=== PATIENT | male | born 1995 | race Native Hawaiian/Other Pacific Islander ===

== ENCOUNTER 2016-04-10 17:31 | Emergency (ER) | payer OTHER ==
[~2016-04-10] VITALS: Ht 180.3 cm; Wt 70.0 kg
[2016-04-10 17:40] VITALS: BP 113/58; PULSE 76; RESP 18; TEMP 97.6; O2SAT 98
[2016-04-10 18:34] LABS: BASOPHIL % 0.2 % (0.0-2.0); EOSINOPHIL % 0.6 % (0.0-4.0); HEMATOCRIT 41.9 % (39.0-51.0); HEMO FLAGS DIFF FINAL; LYMPH % 20.2 % (9.0-44.0); LYMPHOCYTE # 1.7 TH/MM3 (1.0-4.8); MEAN CELL VOLUME 95.3 FL (80.0-100.0); MEAN CORPUSCULAR HEMOGLOBIN 32.3 PG (27.0-34.0); MEAN CORPUSCULAR HGB CONC 33.9 % (32.0-36.0); MONO % 6.3 % (0.0-8.0); NEUT % 72.7 % (16.0-70.0); PLATELET COUNT 241 TH/MM3 (150-450); RED BLOOD COUNT 4.39 MIL/MM3 (4.50-5.90); RED CELL DISTRIBUTION WIDTH 13.1 % (11.6-17.2); WHITE BLOOD COUNT 8.2 TH/MM3 (4.0-11.0)
--- NOTE | 2016-04-10 18:41 | RADRPT ---
EXAM DATE/TIME: 04/10/2016 18:31 [facility] COMPARISON: No previous studies available for comparison. INDICATIONS : Possible seizure, fall with trauma to head and face. RADIATION DOSE: 38.23 CTDIvol (mGy) MEDICAL HISTORY : None SURGICAL HISTORY : None. ENCOUNTER: Initial ACUITY: 1 day PAIN SCALE: 5/10 LOCATION: cranial TECHNIQUE: Multiple contiguous axial images were obtained of the head. Using automated exposure control and adj ustment of the mA and/or kV according to patient size, radiation dose was kept as low as reasonably a chievable to obtain optimal diagnostic quality images. FINDINGS: CEREBRUM: The ventricles are normal for age. No evidence of midline shift, mass lesion, hemorrhage or acute in farction. No extra-axial fluid collections are seen. POSTERIOR FOSSA: The cerebellum and brainstem are intact. The 4th ventricle is midline. The cerebellopontine angle i s unremarkable. EXTRACRANIAL: The visualized portion of the orbits is intact. SKULL: The calvaria is intact. No evidence of skull fracture. CONCLUSION: Normal examination. Crow Barrios MD on April 10, 2016 at 18:39 Board Certified Radiologist. This report was verified electronically.
--- NOTE | 2016-04-10 18:46 | RADRPT ---
EXAM DATE/TIME: 04/10/2016 18:31 [facility] COMPARISON: CT BRAIN W/O CONTRAST, April 10, 2016, 18:31. INDICATIONS : Fall with trauma to face. RADIATION DOSE: 58.52 CTDIvol (mGy) MEDICAL HISTORY : Seizures. SURGICAL HISTORY : None. ENCOUNTER: Subsequent ACUITY: 1 day PAIN SCORE: 6/10 LOCATION: facial TECHNIQUE: Volumetric scanning of the facial bones was performed. Using automated exposure control and adjustme nt of the mA and/or kV according to patient size, radiation dose was kept as low as reasonably achiev able to obtain optimal diagnostic quality images. FINDINGS: ORBITS: The orbital and infraorbital osseous structures are intact. The retroconal structures have a normal configuration. No radiopaque foreign bodies are seen. NASAL BONE: The nasal bone and maxillary spine are intact ZYGOMATIC ARCHES: Symmetric without evidence of fracture. SINUSES: The maxillary, ethmoid and frontal sinuses are intact. No air-fluid levels seen. NASAL CAVITY: The nasal septum is intact and midline. The lacrimal ducts are intact. SOFT TISSUES: No radiopaque foreign bodies seen. No soft-tissue swelling is seen. Superficial soft tissue abrasion or laceration at the chin anteriorly INTRACRANIAL: No intracranial air seen. CRIBIFORM PLATE: Grossly intact. CONCLUSION: Superficial soft tissue laceration abrasion anterior chin. Otherwise negative no acute bony injury. Crow Barrios MD on April 10, 2016 at 18:42 Board Certified Radiologist. This report was verified electronically.
[2016-04-10 18:47] LABS: ANION GAP 15 MEQ/L (5-15); BICARBONATE 20.6 MEQ/L (21.0-32.0); BLOOD UREA NITROGEN 13 MG/DL (7-18); CHLORIDE 105 MEQ/L (98-107); GLOMERULAR FILTRATION RATE 67 ML/MIN (>89); MAGNESIUM 2.2 MG/DL (1.5-2.5); POTASSIUM 3.9 MEQ/L (3.5-5.1); SODIUM (NA) 141 MEQ/L (136-145)
[2016-04-10 18:51] LABS: ALKALINE PHOSPHATASE 59 U/L (45-117); ALT (GPT) 34 U/L (12-78); AST (GOT) 19 U/L (15-37); TOTAL BILIRUBIN ADULT 0.5 MG/DL (0.2-1.0)
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
[2016-04-10] MEDS ORDERED: NAPR500T PO (18:58)
[2016-04-10] MEDS ORDERED: LIDOCAINE HCL 1% 50 ML VIAL INFIL ONE (19:15)
--- NOTE | 2016-04-10 19:56 | PD ---
Physical Exam Narrative I was asked by Dr. Mahmood to suture laceration on patient's chin Data Data Last Documented VS Vital Signs Date Time Temp Pulse Resp B/P Pulse Ox O2 Delivery O2 Flow Rate FiO2 04/10/16 17:47 98 18 99 Room Air 04/10/16 17:40 97.6 113/58 Orders Complete Blood Count With Diff (04/10/16 17:43) Comprehensive Metabolic Panel (04/10/16 17:43) ^ Insert Iv (04/10/16 17:43) Ct Brain W/O Iv Contrast(Rout) (04/10/16 ) Ct Facial Bones W/O Iv Cont (04/10/16 ) Magnesium (Mg) (04/10/16 17:43) Lidocaine 1% Inj (50 Ml) (Xylocaine 1% I (04/10/16 19:15) Labs Laboratory Tests Test 04/10/16 18:15 White Blood Count 8.2 TH/MM3 Red Blood Count 4.39 MIL/MM3 Hemoglobin 14.2 GM/DL Hematocrit 41.9 % Mean Corpuscular Volume 95.3 FL Mean Corpuscular Hemoglobin 32.3 PG Mean Corpuscular Hemoglobin 33.9 % Concent Red Cell Distribution Width 13.1 % Platelet Count 241 TH/MM3 Mean Platelet Volume 7.6 FL Neutrophils (%) (Auto) 72.7 % Lymphocytes (%) (Auto) 20.2 % Monocytes (%) (Auto) 6.3 % Eosinophils (%) (Auto) 0.6 % Basophils (%) (Auto) 0.2 % Neutrophils # (Auto) 6.0 TH/MM3 Lymphocytes # (Auto) 1.7 TH/MM3 Monocytes # (Auto) 0.5 TH/MM3 Eosinophils # (Auto) 0.0 TH/MM3 Basophils # (Auto) 0.0 TH/MM3 CBC Comment DIFF FINAL Differential Comment Sodium Level 141 MEQ/L Potassium Level 3.9 MEQ/L Chloride Level 105 MEQ/L Carbon Dioxide Level 20.6 MEQ/L Anion Gap 15 MEQ/L Blood Urea Nitrogen 13 MG/DL Creatinine 1.33 MG/DL Estimat Glomerular Filtration 67 ML/MIN Rate Random Glucose 161 MG/DL Calcium Level 8.6 MG/DL Magnesium Level 2.2 MG/DL Total Bilirubin 0.5 MG/DL Aspartate Amino Transf 19 U/L (AST/SGOT) Alanine Aminotransferase 34 U/L (ALT/SGPT) Alkaline Phosphatase 59 U/L Total Protein 7.0 GM/DL Albumin 4.0 GM/DL [facility] Medical Record Reviewed: Yes Supervised Visit with ELIZABETH: No Differential Diagnosis chin laceration Narrative Course 20-year-old male here status post seizure with a laceration to his chin. Patient has a 2 cm laceration on his chin. LACERATION LOCATION: chin LENGTH: 2 cm NUMBER OF STITCHES/PRATIK: 6 REPAIR: The area of the laceration was prepped with Betadine and sterilely draped. The laceration was infiltrated with 1% lidocaine. The wound was copiously irrigated and explored without evidence of foreign body, tendon injury or neurovascular injury. The wound was closed using 6.0 prolene. This was a single layer repair. A sterile dressing was applied. The patient was advised to keep the dressing clean and dry. Patient tolerated the procedure well. Discussed keeping area free of moisture as this can cause maceration. Recommend wound check in 2-3 days with [facility]. Advised patient that he can follow up here or with [facility] for suture removal in 5- 7 days. Diagnosis Primary Impression: Seizure Additional Impressions: Fracture, tooth Qualified Code: S02.5XXA - Closed fracture of tooth, initial encounter Chin laceration Qualified Code: S01.81XA - Chin laceration, initial encounter Patient Instructions: Facial Laceration (ED), General Instructions Additional Instruction: If you develop severe worsening headache, persistent vomiting, numbness, weakness, difficulty walking or difficulty talking return to the emergency department immediately. It is very important that you follow-up with a neurologist regarding this seizure. Don't drive, swim, or do anything that would be dangerous while having a seizure during it until you see a neurologist. Have your sutures removed in 3-5 days. If you develop redness, drainage of your chin return to the emergency department. Follow-up with a dentist as soon as possible regarding your broken tooth. 6 sutures were placed in your chin. As we discussed you can follow up with the [facility] clinic to have a wound check and to have sutures removed or you can come here. Scripts Naproxen 500 Mg [id number] Mg PO BID PRN (PAIN SCALE 4 TO 10) #20 TAB Prov:Jessica Mahmood MD 04/10/16 Disposition: 01 DISCHARGE HOME Condition: Stable Bianca Foley Apr 10, 2016 19:56
== END 2016-04-10 20:18 | disposition home or self-care (01) ==
LOC: NEPC 17:31
DX: S01.81XA Laceration without foreign body of other part of head, initial encounter (principal); R56.9 Unspecified convulsions; S02.5XXA Fracture of tooth (traumatic), initial encounter for closed fracture; W17.89XA Other fall from one level to another, initial encounter; Y93.89 Activity, other specified; Y92.9 Unspecified place or not applicable
CPT/HCPCS: 12011; 70450; 70486; 80053; 83735; 85025